=== PATIENT | female | born 1955 | race Caucasian/White ===

== ENCOUNTER → 2016-11-26 | Outpatient (CLI) | payer OTHER ==
[~2016-11-26] MED LIST: "\\\"STATIN\\\""; ACYC-114 PO; ESTR8.1S2 TRANSTRAC
== END | disposition home or self-care (01) ==
LOC: CFH 09:06
PROVIDERS: ATTEND Nurse Practitioner Family
DX: M19.042 Primary osteoarthritis, left hand (principal); M25.742 Osteophyte, left hand